=== PATIENT | male | born 1980 | race Caucasian/White ===

== ENCOUNTER → 2016-07-16 | Day surgery (SDC) | payer BC ==
[2016-07-01 15:07] VITALS: Ht 170.2 cm; Wt 104.5 kg
[~2016-07-16] VITALS: Ht 170.2 cm; Wt 104.5 kg
[~2016-07-16] MED LIST: ATROPINE SULFATE 0.1 MG/ML 5ML SYR IV PRN; BUPIVACAINE 0.5 % 5 MG/1 ML PF 10ML VIAL ONE; BUPIVACAINE/EPINEPHRINE 0.5% MPF 1:200,000 30 ML VIAL ONE; CEFAZOLIN 2000 MG/60 ML D5W IV SCH; CHOL2000 PO; CRS/10 PO; DEXAMETHASONE SOD INJ 4 MG/ML VIAL ONE; DICL-201 PO; FENTANYL CITRATE INJ 50 MCG/1 ML 2 ML VIAL ONE; HYDR-5688 PO; KETOROLAC TROMETHAMINE 30 MG/ML VIAL IV. PRN; LABETALOL HCL IV 5 MG/ML 20ML IV ONE; LABETALOL HCL IV 5 MG/ML 20ML IV PRN; LACTATED RINGER'S 1000ML 1,000 ML IV SCH; LIDOCAINE HCL 2% 2 ML VIAL (20MG/ML) ONE; LORA-741 PO; MEPERIDINE HCL 25 MG/ML CARP IV PRN; MIDAZOLAM HCL 1 MG/ML 2ML VIAL ONE; NAPR-1169 PO; OMEG10007 PO; OMEP40CA41 PO; ONDANSETRON INJ 2 MG/ML 2 ML VIAL IV PRN; ONDANSETRON INJ 2 MG/ML 2 ML VIAL ONE; OXYCODONE/ACETAMINOPHEN 5-325 TAB ONE; OXYCODONE/ACETAMINOPHEN 5-325 TAB PO PRN; POTA99TA PO; PRD20 PO; PROPOFOL IV EMULSION 10 MG/ML 20 ML VIAL IV ONE; SODIUM CHLORIDE 0.9% 1000ML 1,000 ML IV SCH; TRAM-10 PO
--- NOTE | 2016-07-16 08:50 | History & Physical Bridge - [place] ---
H&P Re-Evaluation Bridge Note: I have examined the patient, reviewed the History & Physical and in the interval since the performance of the History & Physical I have noted the following changes of clinical significance: No changes noted
--- NOTE | 2016-07-16 10:04 | [facility] Post Operative Brief Note ---
Immediate Operative Summary Operative Date Jul 16, 2016. Pre-Operative Diagnosis Osteolysis Left Distal Clavicle Post-Operative Diagnosis same as preop Procedure(s) Performed Left Open Partial Claviculectomy Surgeon Dr. Cagle Electronic Technician Surgeon(s) RAYNE Vazquez Estimated Blood Loss 5ML Findings ABOVE Specimens none per surgeon Anesthesia LMA Complication(s) None Disposition Recovery Room / PACU
--- NOTE | 2016-07-16 10:10 | Discharge Instructions-SurgCtr ---
Discharge Instructions Date of Service Jul 16, 2016. Visit Reason for Visit: Osteolysis Left Distal Clavicle Discharge Discharge Diagnosis / Problem: SAME ABOVE Discharge Goals Goal(s): Decrease discomfort, Improve function Activity Recommendations Activity Limitations: as noted below Lifting Limitations: until after follow-up appointment Exercise/Sports Limitations: until after follow-up appointment Shower/Bathe: keep incision dry Anesthesia . Post Anesthesia Instructions: If you have had General Anesthesia or IV Sedation: * Do not drive today. * Resume driving when surgeon permits. * Do not make important decisions or sign legal documents today. * Call surgeon for: 1. Temperature elevations greater than 101 degrees F. 2. Uncontrollable pain. 3. Excessive bleeding. 4. Persistent nausea and vomiting. 5. Medication intolerance (nausea, vomiting or rash). * For nausea and vomiting use only clear liquids such as: tea, soda, bouillon until nausea subsides, then gradually increase diet as tolerated. * If you have any concerns or questions, call your surgeon's office. If physician is unavailable and it is an emergency, call 911 or go to the nearest emergency room. . Instructions / Follow-Up Instructions / Follow-Up MEDICATIONS: * Resume previous medications unless instructed otherwise by your surgeon. * Always take pain medication on a full stomach or with food to avoid upset stomach. * Do not drink alcohol or drive while taking narcotics. * Ibuprofen or Tylenol may be taken if narcotic not needed. SPECIAL CARE INSTRUCTIONS: __ None _X_ Keep extremity elevated and iced x 48 hours; apply ice 20-30 minutes 8-10 times/day. May remove at night. _X_ Sling __24 hrs/day __ Remove at night __ Shoulder Immobilizer __ 24 hrs/day __ Remove at night _X_ Dressing __ Maintain until seen in office, may shower with plastic over site _X_ Remove dressings in 24-48 hours and then may shower _X_ Cover incisions with band-aids after showering __ Do not remove steri-strips Call physician if chills or temperature rises above 102 degrees or pain unrelieved by prescribed pain medications at . . Diet Recommendations Home Diet: resume previous diet Procedures Procedures Performed: Left Open Partial Claviculectomy Pending Studies Studies pending at discharge: no Medical Emergencies . Who to Call and When: Medical Emergencies: If at any time you feel your situation is an emergency, please call 911 immediately. . Non-Emergent Contact Non-Emergency issues call your: Primary Care Provider . . "Provider Documentation" section prepared by Kleber Morales.
[2016-07-16] MEDS: FENTANYL CITRATE INJ 50 MCG/1 ML 2 ML VIAL IV PRN ×4 (10:15→10:36)
--- NOTE | 2016-07-16 10:27 | OPERATIVE REPORT ---
DATE OF OPERATION: 07/16/2016 PREOPERATIVE DIAGNOSIS: Osteolysis distal clavicle, acromioclavicular joint pain, left shoulder. POSTOPERATIVE DIAGNOSIS: Same. PROCEDURE: Open Brooke procedure, resection of distal end of clavicle. SURGEON: Dr. Cagle. MANAGER CRISIS: Kleber Morales PA-C. ANESTHESIOLOGIST: Dr. Angela. ANESTHESIA: LMA. DRAINS: None. COMPLICATION: None. CONDITION: The patient tolerated the procedure well and returned to the recovery room in apparent satisfactory condition. 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 He has had multiple injections and conservative care over the years and would like to proceed with resection of distal end of his clavicle. Procedure, expected outcome, side effects, and risks were all explained in detail. PROCEDURE IN DETAIL: The patient was taken to the OR at which time he was placed supine on the operating table. He was put to sleep by the anesthesia department, placed in a beach chair position. Left shoulder was prepped and draped in usual sterile fashion for surgery. We made an incision over the AC joint, probably about inch and a half in length, dissected down. He had a lot of bleeding at first, we used electrocautery to control that. We found the capsule of the AC joint, opened it, and I then resected it back so we could cut the distal end of the clavicle. About a centimeter of it was cut off with an oscillating blade. We palpated around, no other spurs were noted. Great range of motion, no more impingement, had horizontal reduction of his shoulder. The wound was copiously irrigated. Capsule was closed with 0 Vicryl and then 2-0 Vicryl underneath the skin edges. We used 4-0 nylon to close the skin. Marcaine without epinephrine was placed in the skin edges. Marcaine with some epinephrine was placed in the AC joint area. He was placed in a sterile dressing of Xeroform, 4 x 4, and Opsite, with arm sling, and returned back to the recovery room in apparent satisfactory condition. I attest to the content of the Intraoperative Record and any orders documented therein. Any exceptio ns are noted below.
[2016-07-16 11:00] VITALS: TEMP 36.6
[2016-07-16 11:38] VITALS: BP 120/79; PULSE 85; O2SAT 95
--- NOTE | 2016-07-16 11:45 | Anesthesia Progress Nt - [facility] ---
Anesthesia Post Op Note Date & Time Jul 16, 2016 at 11:45 Vital Signs Pain Intensity: 4.0 Vital Signs Past 12 Hours Date Time Temp Pulse Resp B/P Pulse Ox O2 Delivery O2 Flow Rate FiO2 07/16/16 11:38 85 16 120/79 95 Room Air 07/16/16 11:00 36.6 83 16 131/87 96 Room Air 07/16/16 10:49 122/88 07/16/16 10:47 81 16 91 07/16/16 10:47 80 16 07/16/16 10:46 83 13 07/16/16 10:46 36.6 87 16 133/94 93 Room Air 07/16/16 10:46 82 13 93 07/16/16 10:44 133/94 07/16/16 10:41 87 17 92 07/16/16 10:41 89 17 07/16/16 10:39 133/91 07/16/16 10:36 90 13 95 07/16/16 10:36 87 13 07/16/16 10:35 139/90 07/16/16 10:31 69 11 99 07/16/16 10:31 70 11 07/16/16 10:30 147/86 07/16/16 10:26 86 14 07/16/16 10:26 86 14 100 07/16/16 10:25 136/89 07/16/16 10:23 74 11 07/16/16 10:23 74 11 100 07/16/16 10:19 135/95 07/16/16 10:18 84 13 07/16/16 10:18 73 13 90 07/16/16 10:15 149/100 07/16/16 10:13 80 15 99 07/16/16 10:13 81 15 07/16/16 10:09 147/114 07/16/16 10:08 36.7 92 16 142/92 96 Diffusion Mask 6 07/16/16 10:08 89 17 142/92 99 07/16/16 10:08 90 17 07/16/16 08:14 36.7 77 16 121/82 97 Room Air Notes Mental Status: alert / awake / arousable, participated in evaluation Pt Amnestic to Procedure: Yes Nausea / Vomiting: adequately controlled Pain: adequately controlled Airway Patency, RR, SpO2: stable & adequate BP & HR: stable & adequate Hydration State: stable & adequate Anesthetic Complications: no major complications apparent
== END | disposition home or self-care (01) ==
LOC: X.SURG 07:52
PROVIDERS: ATTEND Orthopaedic Surgery
DX: M89.512 Osteolysis, left shoulder (principal); E78.00 Pure hypercholesterolemia, unspecified; K21.9 Gastro-esophageal reflux disease without esophagitis; F17.210 Nicotine dependence, cigarettes, uncomplicated; F41.9 Anxiety disorder, unspecified; Z90.89 Acquired absence of other organs